=== PATIENT | female | born 1990 | race Caucasian/White ===

== ENCOUNTER 2020-09-15 14:25 | Emergency (ER) | payer OTHER, SELFPAY ==
--- NOTE | ~2020-09-15 | CT_ITS ---
EXAMINATION: CT abdomen pelvis w con DATE: 09/15/2020 15:44 INDICATION: Right lower quadrant abdominal pain. TECHNIQUE: Computed tomography (CT) of the abdomen and pelvis was performed with 100 mL Omnipaque 350 intravenous contrast. Automated exposure control and iterative reconstruction technique were employe d. The dose-length product was 1348.48 mGy-cm. COMPARISON: CT abdomen and pelvis 07/08/2019 FINDINGS: The visualized portions of the lung bases are clear without pneumonia or pleural effusion. The heart size is normal. No pericardial effusion. The liver, spleen, pancreas, adrenal glands, and r ight kidney are normal. There is a 4 mm stone in left kidney. There are no dilated loops of bowel. Th e appendix is normal. There are no pathologically enlarged lymph nodes. There is no free intraperiton eal fluid. There is mild thoracolumbar spondylosis. IMPRESSION: 1. 4 mm nonobstructing left kidney stone. Reviewed, dictated and finalized at location A.
--- NOTE | 2020-09-15 14:48 | ED.ABDPAIN ---
HPI - Abdominal Pain General Chief Complaint: Abdominal Pain Stated Complaint: abd/back pain Time Seen by Provider: 09/15/20 14:29 Source: patient Mode of arrival: ambulatory Limitations: no limitations History of Present Illness HPI narrative: 30 years old white female presents with right lower quadrant pain that started last night. Squeezing, on fire, get better with heating pad, Patient had similar history of recurrent right lower quadrant pain for the last 2 years. Today is not different than before. Patient had history of uterine ablation and some uterine disorder requires possible complete hysterectomy. Last menstrual period 1 month ago. History of section x2, uterine ablation, bilateral tubal ligation. Patient denies any fever, chills, nausea, vomiting, diarrhea, constipation, urinary symptoms, vaginal bleeding or discharge, COVID-19 exposure. Related Data Home Medications Medication Instructions Recorded Confirmed No Home Medications 09/15/20 09/15/20 Allergies Allergy/AdvReac Type Severity Reaction Status Date / Time No Known Allergies Allergy Verified 09/15/20 15:00 Review of Systems Review of Systems: Narrative: CONSTITUTIONAL: Denies fever, chills, or sweats. EYES: Denies visual changes, redness, or discharge. ENT: Denies rhinorrhea, congestion, sore throat, or otalgia. CARDIOVASCULAR: Denies chest pain, palpitations, or edema. RESPIRATORY: Denies cough or dyspnea. GASTROINTESTINAL: Denies abdominal pain, nausea, vomiting, or diarrhea. GENITOURINARY: Denies dysuria or hematuria. SKIN: Denies rash or itching. MUSCULOSKELETAL: Denies back pain, joint pain, or myalgia. NEUROLOGIC: Denies headache, numbness, or weakness. PSYCHIATRIC: Denies anxiety or depression. PMFSH Past Medical History Medical History Abdominal pain Obesity Social History Social History Social History: Patient denies smoking, drinking or using drugs. Second hand tobacco smoke exposure: No Exam Narrative: Exam Narrative: General appearance: Well-developed, well-nourished Skin: Normal color Head: Normocephalic, nontraumatic Eyes: Clear conjunctiva ENT: Oropharynx normal, ears normal, nose normal Neck: Supple, nontender Chest and respiratory: Airway patent, no respiratory distress, no accessory muscle use Heart: Regular rate/rhythm Abdomen: Soft, moderate tenderness right lower quadrant, slight guarding, no rebound, no organomegaly, quiet bowel sounds Vascular: Normal peripheral pulses, normal capillary refill. Musculoskeletal: Normal range of motion, nontender back Neurologic: Alert and oriented ?3, ASSOCIATE DOCTOR is normal as tested, no gross motor deficit Course Course Emergency Course: Improving/stable Vital Signs Vital signs: Vital Signs Temperature 36.7 C 09/15/20 14:55 Pulse Rate 97 09/15/20 14:55 Respiratory Rate 20 09/15/20 14:55 Blood Pressure 117/55 L 09/15/20 14:55 Pulse Oximetry 100 09/15/20 14:55 Temperature 36.7 C 09/15/20 14:55 Pulse Rate 97 09/15/20 14:55 Respiratory Rate 20 09/15/20 14:55 Blood Pressure 117/55 L 09/15/20 14:55 Pulse Oximetry 100 09/15/20 14:55 MDM - Abdominal Pain MDM Narrative Medical decision making narrative: Patient presents with recurrent right lower quadrant pain high likely secondary to uterine disorder. Patient does not know what it is. Labs, CT abdomen pelvis with IV contrast ordered. IV fluids started. Blood work-up showed no significant abnormality, CT scan of the abdomen and pelvis showed no significant abnormality. Patient probably need to follow-up wit
[2020-09-15 14:53] LABS: Add Urine Microscopic? YES; Appearance Urine Cloudy (Clear); Bacteria Urine Trace /hpf; Bilirubin Urine Negative (Negative); Blood Urine Negative (Negative); Color Urine Yellow (Yellow); Glucose Urine UA Negative (Negative); Ketones Urine Negative (Negative); Leukocyte Esterase Ur Negative LEU/UL (Negative); Mucus Urine Rare /lpf; Nitrate Urine Negative (Negative); Protein Urine Negative (Negative); RBC Urine 0-2 /hpf (0-2); Specific Grav Ur 1.018 (1.001-1.035); Squamous Epithelial Cell Urine Many /hpf (Few); Urobilinogen Urine Negative mg/dL (<2.0); WBC Urine 0-3 /hpf
[2020-09-15 14:55] VITALS: BP 117/55; PULSE 97; RESP 20; TEMP 36.7; O2SAT 100
[2020-09-15] MEDS: SODIUM CHLORIDE 0.9% IV 1,000 ML 999 ML IV CONT (15:01)
[2020-09-15 15:09] LABS: Basophils Percent Auto 0.4 % (0.2-1.2); Eosinophils Absolute Auto 0.1 K/mm3 (0-0.3); Eosinophils Percent Auto 0.8 % (0-4.4); Hematocrit 38.6 % (37.0-47.0); Hemoglobin 12.2 g/dL (12.0-15.0); Immature Granulocyte Absolute 0.02 K/mm3 (0.00-0.031); Immature Granulocyte Percent A 0.2 % (0-0.5); Lymphocytes Absolute Auto 2.68 K/mm3 (0.9-3.2); Lymphocytes Percent Auto 31.9 % (18.3-44.2); Mean Corpuscular HGB Conc 31.6 g/dl (32-36); Mean Corpuscular Hemoglobin 24.7 pg (26-34); Mean Corpuscular Volume 78.3 fl (80-100); Mean Platelet Volume 9.7 fl (7.4-10.4); Monocytes Absolute Auto 0.4 K/mm3 (0.1-0.6); Monocytes Percent Auto 4.6 % (2.6-8.5); Neutrophils Absolute Auto 5.2 K/mm3 (1.3-6.7); Neutrophils Percent Auto 62.1 % (45.5-73.1); Platelet Count Result 265 k/mm3 (150-375); Red Blood Count 4.93 M/mm3 (4.2-5.4); Red Cell Distribution Width 14.2 % (11.5-14.5); White Blood Count 8.4 K/mm3 (4.5-10.0)
[2020-09-15 15:20] LABS: Alanine Aminotransferase 19 U/L (4-35); Albumin Level 4.3 g/dL (3.5-5.1); Alkaline Phosphatase 118 U/L (38-126); Anion Gap 10 mmol/L (8-16); Aspartate Amino Transferase 25 U/L (14-36); Bilirubin,Total 0.4 mg/dL (0.2-1.3); Blood Urea Nitrogen 7 mg/dL (7-17); Calcium 9.2 mg/dL (8.4-10.2); Carbon Dioxide 24 mmol/L (22-30); Chloride 103 mmol/L (98-107); Estimated CRCL calculation 141 ml/min; Estimated Glomerular Filt Rate > 60; Glucose 91 mg/dL (65-105); Lipase 34 U/L (23-300); Potassium 3.8 mmol/L (3.4-5.0); Sodium 137 mmol/L (137-145)
[2020-09-15 17:14] VITALS: BP 130/80; PULSE 88; RESP 18; TEMP 36.6; O2SAT 99
== END 2020-09-15 17:15 | disposition home or self-care (01) ==
PROVIDERS: Emergency Provider Emergency Medicine; PCP Obstetrics & Gynecology
DX: R10.31 Right lower quadrant pain (principal); N20.0 Calculus of kidney
CPT/HCPCS: 36415; 74177; 80053; 81001; 81025; 83690; 85025; 96360; 99284; J7030; Q9967

== ENCOUNTER 2021-11-12 15:03 | Emergency (ER) | payer OTHER, SELFPAY ==
--- NOTE | ~2021-11-12 | CT_ITS ---
EXAMINATION: CT abdomen pelvis wo con DATE: 11/12/2021 16:38 INDICATION: Right flank pain. TECHNIQUE: Computed tomography (CT) of the abdomen and pelvis was performed without intravenous contr ast. Automated exposure control and iterative reconstruction technique were employed. The dose-length product was 757.65 mGy-cm. COMPARISON: 09/15/2020 FINDINGS: Lung bases are clear. Heart size is normal. No pericardial or pleural effusion. Liver, gallbladder, s pleen, pancreas and bilateral adrenal glands are normal. Bilateral nephrolithiasis with 3 1-2 mm ston es in the right kidney and 3 stones measuring between 1 mm and 3 mm in the left kidney. Unchanged sma ll phlebolith slightly posterior to the distal most left ureter. No ureteral stones or hydronephrosis . Bowels including the appendix are normal. Decompressed bladder, anteverted uterus and bilateral ad nexa are unremarkable. No free intraperitoneal gas or fluid. No pathologically enlarged abdominal or pelvic lymphadenopathy. Mild lumbar levocurvature with mild thoracic and minimal lumbar spondylosis. IMPRESSION: 1. Bilateral nonobstructing nephrolithiasis. No acute intra-abdominal/pelvic process. Reviewed, dictated and finalized at location H. ORATING MACHINE OPERATOR IMPRESSION: 1. Bilateral nonobstructing nephrolithiasis. No acute intra-abdominal/pelvic pr ocess.
[2021-11-12 15:05] VITALS: BP 151/99; PULSE 102; RESP 16; TEMP 36.8; O2SAT 100
--- NOTE | 2021-11-12 16:13 | ED.ABDPAIN ---
HPI - Abdominal Pain General Chief Complaint: Abdominal Pain Stated Complaint: back and abd pain Time Seen by Provider: 11/12/21 16:06 Source: patient and RN notes reviewed History of Present Illness HPI narrative: Patient presents to the ED with right flank pain radiating to the mid axillary line of the abdomen started 2 days ago, like a deep ache pain. Patient denies aggravating or relieving factors. Patient denies having similar symptoms. Patient drove herself to the emergency room. Patient is not vaccinated for COVID-19. Patient denies any fever, chills, nausea, vomiting, diarrhea, constipation, urinary symptoms. History of section x2, bilateral tubal ligation, and GERD. Patient does not smoke or drink or uses drugs. Related Data Home Medications Medication Instructions Recorded Confirmed No Home Medications 09/15/20 09/15/20 Allergies Allergy/AdvReac Type Severity Reaction Status Date / Time No Known Allergies Allergy Verified 11/12/21 15:07 Review of Systems Review of Systems: CONSTITUTIONAL: Denies fever, chills, or sweats. EYES: Denies visual changes, redness, or discharge. ENT: Denies rhinorrhea, congestion, sore throat, or otalgia. CARDIOVASCULAR: Denies chest pain, palpitations, or edema. RESPIRATORY: Denies cough or dyspnea. GASTROINTESTINAL: Denies abdominal pain, nausea, vomiting, or diarrhea. GENITOURINARY: Denies dysuria or hematuria. SKIN: Denies rash or itching. MUSCULOSKELETAL: Denies back pain, joint pain, or myalgia. NEUROLOGIC: Denies headache, numbness, or weakness. PSYCHIATRIC: Denies anxiety or depression. PMFSH Past Medical History Medical History Abdominal pain Obesity Social History Social History Social History: Patient denies smoking, drinking or using drugs. Second hand tobacco smoke exposure: No Exam Narrative: General appearance: Well-developed, well-nourished Skin: Normal color Head: Normocephalic, nontraumatic Eyes: Clear conjunctiva ENT: Oropharynx normal, ears normal, nose normal Neck: Supple, nontender Chest and respiratory: Airway patent, no respiratory distress, no accessory muscle use Heart: Regular rate/rhythm Abdomen: Soft, slight tenderness right flank area, no organomegaly, quiet bowel sounds Vascular: Normal peripheral pulses, normal capillary refill. Musculoskeletal: Normal range of motion, nontender back Neurologic: Alert and oriented ?3, PROCESS MECHANIC is normal as tested, no gross motor deficit Course Course Emergency Course: Stable, improving Vital Signs Vital signs: Vital Signs Temperature 36.8 C 11/12/21 15:05 Pulse Rate 102 H 11/12/21 15:05 Respiratory Rate 16 11/12/21 15:05 Blood Pressure 151/99 H 11/12/21 15:05 Pulse Oximetry 100 11/12/21 15:05 Temperature 36.8 C 11/12/21 15:05 Pulse Rate 102 H 11/12/21 15:05 Respiratory Rate 16 11/12/21 15:05 Blood Pressure 151/99 H 11/12/21 15:05 Pulse Oximetry 100 11/12/21 15:05 MDM - Abdominal Pain MDM Narrative Medical decision making narrative: Kidney stone, pyelonephritis is my concern. Labs, CT abdomen pelvis without contrast, IV fluid ordered Differential Diagnosis Differential diagnosis: Likely abdominal pain, acute appendicitis, calculus of kidney, constipation, diverticulitis, pancreatitis and other (Kidney stone) Critical Care Time Critical Care Time Critical Care Time: Yes Total Critical Care Time: 35 Discharge Plan Discharge Prescriptions: No Action No Home Medications RF: 0
[2021-11-12 16:21] LABS: Basophils Percent Auto 0.4 % (0.2-1.2); Eosinophils Absolute Auto 0.1 K/mm3 (0-0.3); Hematocrit 37.4 % (37.0-47.0); Hemoglobin 11.8 g/dL (12.0-15.0); Immature Granulocyte Absolute 0.03 K/mm3 (0.00-0.031); Immature Granulocyte Percent A 0.3 % (0-0.5); Lymphocytes Absolute Auto 2.74 K/mm3 (0.9-3.2); Lymphocytes Percent Auto 27.8 % (18.3-44.2); Mean Corpuscular HGB Conc 31.6 g/dl (32-36); Mean Corpuscular Hemoglobin 25.4 pg (26-34); Mean Corpuscular Volume 80.4 fl (80-100); Monocytes Absolute Auto 0.5 K/mm3 (0.1-0.6); Monocytes Percent Auto 5.5 % (2.6-8.5); Neutrophils Absolute Auto 6.4 K/mm3 (1.3-6.7); Platelet Count Result 267 k/mm3 (150-375); Red Blood Count 4.65 M/mm3 (4.2-5.4); Red Cell Distribution Width 14.1 % (11.5-14.5); White Blood Count 9.9 K/mm3 (4.5-10.0)
[2021-11-12] MEDS: ONDANSETRON INJ 4 MG/2 ML VIAL IV PUSH (16:27)
[2021-11-12] MEDS: MORPHINE SULFATE (*CRX) 4 MG/ML INJ IV PUSH (16:27)
[2021-11-12 16:28] LABS: Add Urine Microscopic? YES; Appearance Urine Clear (Clear); Bilirubin Urine Negative (Negative); Blood Urine Negative (Negative); Color Urine Amber (Yellow); Glucose Urine UA Negative (Negative); Ketones Urine Negative (Negative); Leukocyte Esterase Ur Negative LEU/UL (Negative); Mucus Urine Heavy /lpf; Nitrate Urine Positive (Negative); Protein Urine 1+ mg/dL (Negative); Specific Grav Ur 1.028 (1.001-1.035); Squamous Epithelial Cell Urine Many /hpf (Few); WBC Urine 0-3 /hpf
[2021-11-12] MEDS: SODIUM CHLORIDE 0.9% IV 1,000 ML 999 ML IV CONT (16:28)
[2021-11-12 16:52] LABS: Alanine Aminotransferase 25 U/L (4-35); Albumin Level 4.2 g/dL (3.5-5.1); Alkaline Phosphatase 100 U/L (38-126); Anion Gap 7 mmol/L (8-16); Aspartate Amino Transferase 27 U/L (14-36); Bilirubin,Total 0.3 mg/dL (0.2-1.3); Blood Urea Nitrogen 9 mg/dL (7-17); Calcium 9.1 mg/dL (8.4-10.2); Carbon Dioxide 27 mmol/L (22-30); Chloride 102 mmol/L (98-107); Estimated CRCL calculation 91 ml/min; Estimated Glomerular Filt Rate > 60; Glucose 107 mg/dL (65-110); Lipase 46 U/L (23-300); Potassium 3.8 mmol/L (3.4-5.0); Sodium 136 mmol/L (137-145)
[2021-11-12] MEDS: CIPROFLOXACIN 500 MG TAB PO (18:47)
== END 2021-11-12 19:05 | disposition home or self-care (01) ==
PROVIDERS: Emergency Provider Emergency Medicine; PCP Nurse Practitioner Family
DX: N39.0 Urinary tract infection, site not specified (principal); E66.9 Obesity, unspecified; Z68.41 Body mass index [BMI] 40.0-44.9, adult
CPT/HCPCS: 36415; 74176; 80053; 81001; 81025; 83690; 85025; 96361; 96374; 96375; 99284; A9270; J2270; J2405; J7030

== ENCOUNTER 2024-08-05 11:12 | Emergency (ER) | payer OTHER, SELFPAY ==
--- NOTE | ~2024-08-05 | CT_ITS ---
EXAMINATION: CT abdomen pelvis wo con DATE: 08/05/2024 13:05 INDICATION: Right flank pain TECHNIQUE: Computed tomography (CT) of the abdomen and pelvis was performed without intravenous contr ast. Automated exposure control and iterative reconstruction technique were employed. The dose-length product was 623.05 mGy-cm. COMPARISON: 11/12/2021 FINDINGS: Lung bases are clear. Heart size normal. No pericardial or pleural effusion. Status post sleeve gastr ectomy with suture line along the greater curvature of the stomach. Liver, gallbladder, spleen, pancr eas and bilateral adrenal glands are normal. Kidneys and ureters are normal with no urolithiasis, hyd roureteronephrosis or perinephric/ureteral stranding. Bowels including the appendix are normal. Appr oximately 1 cm low-attenuation lesion along the anterior lower uterine segment which could represent a small uterine fibroid or subendometrial cyst, the latter suggested by Armando small anechoic lesion in this region on ultrasound dated 09/04/2022. Partially decompressed bladder and bilateral adnexa ar e unremarkable. No free intraperitoneal gas or fluid. No pathologically enlarged abdominal or pelvic lymphadenopathy. Mild to moderate thoracic spondylosis with chronic appearing mild likely physiologic anterior wedging at T11-L1. IMPRESSION: 1. No urolithiasis or acute intra-abdominal/pelvic process. Reviewed, dictated and finalized at location B.
[2024-08-05 11:24] VITALS: BP 124/82; PULSE 85; RESP 16; O2SAT 100
[2024-08-05 12:38] LABS: BEDSIDEPREGUCG Negative (Negative)
[2024-08-05 12:51] LABS: Add Urine Microscopic? YES; Appearance Urine Clear (Clear); Bacteria Urine Rare /hpf; Bilirubin Urine Negative (Negative); Blood Urine Negative (Negative); Color Urine Dark Yellow (Yellow); Glucose Urine UA Negative (Negative); Ketones Urine Trace mg/dL (Negative); Leukocyte Esterase Ur Negative LEU/UL (Negative); Nitrate Urine Positive (Negative); Non Pathogenic Casts 0-2; Protein Urine Trace mg/dL (Negative); Specific Grav Ur 1.025 (1.001-1.035); Squamous Epithelial Cell Urine Occasional /hpf (Few); WBC Urine 0-5 /hpf (0-3); pH Urine 7.5 (5.0-9.0)
--- NOTE | 2024-08-05 12:51 | ED.BACK ---
HPI - Back Pain/Injury General Chief Complaint: Back Pain/Injury Stated Complaint: abd pain Time Seen by Provider: 08/05/24 12:16 History of Present Illness HPI Narrative: 34-year-old female presenting to the emergency department for evaluation for right flank pain. Patient reports over the last 2 weeks she has had intermittent burning of her right flank that radiates around to her abdomen. Patient does report prior history of kidney stones but states this feels different. Patient denies has any burning with urination denies any hematuria. Related Data Allergies Allergy/AdvReac Type Severity Reaction Status Date / Time NSAIDS (Non-Steroidal Allergy Other Verified 08/05/24 11:29 Anti-Inflamma Review of Systems Review of Systems: All systems reviewed & are unremarkable except as noted in HPI and below PMFSH Past Medical History Medical History Abdominal pain Obesity Surgical History Surgical History Delivery by section History of endometrial ablation History of tubal ligation Social History Social History (Updated 08/30/22 @ 10:38 by Yumiko Bai MA) Social History: Patient denies smoking, drinking or using drugs. Smoking status: Never smoker Second hand tobacco smoke exposure: No Alcohol intake: never Substance use: never Substance use type: does not use Living arrangements: with family Occupation/Education: unemployed Gender identity (if verbalized by the patient): Female Sexual Orientation (if Verbalized by the Patient): Straight or Heterosexual Exam Narrative: APPEARANCE: Well appearing, no pain, no distress, well-nourished. HEAD: normocephalic, atraumatic. EYES: PERRLA/EOMI, conjunctivae clear. NOSE: Normal no drainage EARS:TMS clear with good light reflex. THROAT: Pharynx clear, no exudate. NECK: Supple. No adenopathy, no masses. RESPIRATORY: Airway patent, respirations nonlabored. Clear to auscultation bilaterally, no rales, rhonchi, wheezing. CARDIOVASCULAR: Regular rate and rhythm without murmurs rubs or gallops. ABDOMINAL: No CVA tenderness to palpation MUSCULOSKELETAL: Moves all extremities. Strength/ROM intact, No edema, No calf tenderness. NEURO: Alert. Cranial nerves II through XII intact. Good gait. Good coordination SKIN: Warm, dry. Normal Color Course Vital Signs Vital signs: Vital Signs Pulse Rate 85 08/05/24 11:24 Respiratory Rate 16 08/05/24 11:24 Blood Pressure 124/82 08/05/24 11:24 Pulse Oximetry 100 08/05/24 11:24 Oxygen Delivery Room Air 08/05/24 11:24 Temperature 97.8 F 08/05/24 13:57 Pulse Rate 72 08/05/24 13:57 Respiratory Rate 15 08/05/24 13:57 Blood Pressure 125/80 08/05/24 13:57 Pulse Oximetry 100 08/05/24 13:57 Oxygen Delivery Room Air 08/05/24 11:24 MDM - Back Pain/Injury MDM Narrative Medical decision making narrative: 34-year-old female presents emergency department for evaluation for right flank pain. Patient did have some hematuria with CT scan was negative for ureteral calculi. Patient was advised to follow-up with Urology for hematuria. Differential Diagnosis Differential diagnosis: Likely lumbar radiculopathy, strain of lumbar region, renal colic, pyelonephritis and other Lab Data Attestation: I reviewed the patient's lab results. Labs: Lab Results 08/05/24 08/05/24 Range/Units 12:32 12:36 Urine Color Dark yellow (Yellow) Urine Appearance Clear (Clear) Urine pH 7.5 (5.0-9.0) Ur Specific [place] 1.025 (1.001-1.035) Urine Protein Trace (Negative) mg/dL Urine Glucose (UA) Negative (Negative) mg/dL Urine Ketones Trace H (Negative) mg/dL Ur Blood (Man) Negative (Negative) Urine Nitrate Positive H (Negative) Urine Bilirubin Negative (Negative) Urine Urobilinogen 1.0 (<2.0) mg/dL Leukocyte Esterase Rfl Negative (
[2024-08-05 13:57] VITALS: BP 125/80; PULSE 72; RESP 15; TEMP 36.6; O2SAT 100
== END 2024-08-05 13:58 | disposition home or self-care (01) ==
PROVIDERS: Emergency Provider Emergency Medicine; PCP Nurse Practitioner Family
DX: R10.9 Unspecified abdominal pain (principal); R31.9 Hematuria, unspecified; E66.9 Obesity, unspecified; Z68.33 Body mass index [BMI] 33.0-33.9, adult; Z79.899 Other long term (current) drug therapy
CPT/HCPCS: 74176; 81001; 81025; 87086; 99284

== ENCOUNTER 2024-09-29 21:07 | Emergency (ER) | payer OTHER, SELFPAY ==
--- NOTE | ~2024-09-29 | US_ITS ---
EXAM: PELVIC ULTRASOUND. Transabdominal only (patient refused transvaginal examination) HISTORY: irregular vaginal bleeding, suprapubic pain . 2 para 2 COMPARISON: 09/04/2022, performed at an outside institution. Reference is also made to the CT examination of the abdomen and pelvis dated 08/05/2024 FINDINGS: UTERUS: 7.3 x 4.1 x 5.1 cm. The uterus is anteverted and anteflexed. The endometrial complex measures 2.1 mm. A small focus of decreased attenuation is identified within the cervix measuring 8 mm in greatest dim ension, unchanged from 2021 examination. RIGHT OVARY: The right ovary is unremarkable in echogenicity and size measuring 2.8 x 1.6 x 1.4 cm. Arterial and venous flow are identified. LEFT OVARY: The left ovary is unremarkable in echogenicity and size measuring 2.3 x 1.4 x 1.7 cm Both arterial and venous flow are identified. No free fluid is identified within the pelvis. IMPRESSION: Stable cyst within the uterus. Otherwise, unremarkable transabdominal sonographic evaluation of the pelvis, as detailed above. Reviewed, dictated and finalized at location A. LY PROGRAM SPECIALIST
[2024-09-29 21:09] VITALS: BP 149/92; PULSE 87; RESP 15; TEMP 36.9; O2SAT 100
[2024-09-29 21:21] LABS: BEDSIDEPREGUCG Negative (Negative)
[2024-09-29 21:37] LABS: Add Urine Microscopic? YES; Appearance Urine Clear (Clear); Bacteria Urine None Seen /hpf; Bilirubin Urine Negative (Negative); Blood Urine 3+ (Negative); Color Urine Yellow (Yellow); Glucose Urine UA Negative (Negative); Ketones Urine Negative (Negative); Leukocyte Esterase Ur Trace LEU/UL (Negative); Need Manual Microscopic Reviewed; Nitrate Urine Negative (Negative); Non Pathogenic Casts 0-2; Protein Urine Negative (Negative); RBC Urine 21-50 /hpf (0-2); Specific Grav Ur 1.024 (1.001-1.035); Squamous Epithelial Cell Urine None Seen /hpf (Few)
[2024-09-29] MEDS: ACETAMINOPHEN 500 MG TABLET 1000 MG PO (21:46)
[2024-09-29 21:58] LABS: Basophils Percent Auto 0.5 % (0.2-1.2); Eosinophils Absolute Auto 0.2 K/mm3 (0-0.3); Eosinophils Percent Auto 2.3 % (0-4.4); Hematocrit 38.6 % (37.0-47.0); Hemoglobin 12.8 g/dL (12.0-15.0); Immature Granulocyte Absolute 0.03 K/mm3 (0.00-0.031); Immature Granulocyte Percent A 0.4 % (0-0.5); Lymphocytes Absolute Auto 3.36 K/mm3 (0.9-3.2); Lymphocytes Percent Auto 40.2 % (18.3-44.2); Mean Corpuscular HGB Conc 33.2 g/dl (32-36); Mean Corpuscular Hemoglobin 28.5 pg (26-34); Mean Platelet Volume 9.4 fl (7.4-10.4); Monocytes Absolute Auto 0.4 K/mm3 (0.1-0.6); Monocytes Percent Auto 5.3 % (2.6-8.5); Neutrophils Absolute Auto 4.3 K/mm3 (1.3-6.7); Neutrophils Percent Auto 51.3 % (45.5-73.1); Platelet Count Result 228 k/mm3 (150-375); Red Blood Count 4.49 M/mm3 (4.2-5.4); Red Cell Distribution Width 12.8 % (11.5-14.5); White Blood Count 8.4 K/mm3 (4.5-10.0)
[2024-09-29 22:09] LABS: Alanine Aminotransferase 16 U/L (6-35); Albumin Level 4.2 g/dL (3.5-5.1); Alkaline Phosphatase 101 U/L (38-126); Anion Gap 7 mmol/L (4-12); Aspartate Amino Transferase 23 U/L (14-36); Bilirubin,Total 0.4 mg/dL (0.2-1.3); Blood Urea Nitrogen 9 mg/dL (7-17); Carbon Dioxide 26 mmol/L (22-30); Chloride 105 mmol/L (98-107); Estimated CRCL calculation 106 ml/min; Estimated Glomerular Filt Rate > 60; Glucose 97 mg/dL (65-110); Potassium 4.2 mmol/L (3.4-5.0); Sodium 138 mmol/L (137-145)
--- NOTE | 2024-09-29 22:49 | ED.FEMALEGU ---
HPI - Female Genitourinary General Chief complaint: Urogenital-Female Stated complaint: when i wiped something weird came out Time Seen by Provider: 09/29/24 21:28 History of Present Illness HPI Narrative: 34-year-old female presents to the emergency department for more abdominal cramping and after passing abnormal tissue from her vagina 2 hours prior to arrival. Patient states she went to the bathroom and wiped and had a large brown chunk of tissue on her toilet paper with surrounding blood which concerned her and prompted her to come to the ED. She has not had to change her pad or tampon since the bleeding began 2 hours ago. States the bleeding is very light. States she has been having lower abdominal cramping and cramping in her low back. She notes that she went to her OBGYN approximately 1 week ago and had a full panel STD testing that was all negative. She states she did test positive for BV at that time is not taking Flagyl. She denies vaginal discharge, dysuria or hematuria, vaginal itchiness, dyspareunia. LMP 09/06/2024. States she does have irregular periods since she had a uterine ablation approximately 6 years ago. Also reports a remote history of tubal ligation. Denies fever, nausea or vomiting. Patient cannot take NSAIDs due to prior gastric bypass surgery. Related Data Home Medications Medication Instructions Recorded Confirmed multivitamin 1 tablet PO DAILY 09/18/24 09/18/24 omeprazole 40 mg capsule,delayed mg PO 09/18/24 09/18/24 release Allergies Allergy/AdvReac Type Severity Reaction Status Date / Time NSAIDS (Non-Steroidal Allergy Other Verified 09/18/24 10:29 Anti-Inflamma Review of Systems Review of Systems: All systems reviewed & are unremarkable except as noted in HPI and below [facility] Past Medical History Medical History Abdominal pain HSV-2 (herpes simplex virus 2) infection Obesity Surgical History Surgical History Delivery by section H/O gastric sleeve December 19, 2023 History of endometrial ablation History of tubal ligation Social History Social History Social History: Patient denies smoking, drinking or using drugs. Smoking status: Current every day smoker Tobacco type: e-cigarettes/vaping Second hand tobacco smoke exposure: No Alcohol intake: current Alcohol use details: occasionally Substance use: never Substance use type: does not use Do You Feel Safe in your Home?: Yes Lack of Transportation: No Lack of Food: Never True Current Housing: I Have Housing Concerned About Future Housing: No Difficulty Paying Gas/Electric Bills: No Difficulty Paying for Meds: No Currently Unemployed: No Education: High School Diploma/GED Difficulty w/ Childcare or Family Care: No Living arrangements: with family Occupation/Education: unemployed Gender identity (if verbalized by the patient): Female Sexual Orientation (if Verbalized by the Patient): Straight or Heterosexual Exam Narrative: GENERAL: Well-appearing, well-nourished, and in no acute distress. HEAD: Normocephalic, atraumatic. EYES: PERRLA and EOMI. ENT: Nares clear, no rhinorrhea or epistaxis. Mucous membranes moist. NECK: Supple. CHEST: Clear to auscultation. No respiratory distress. HEART: Regular rate and rhythm. No murmur heard. Normal peripheral pulses. ABDOMEN: Soft, nontender, nondistended, normal active bowel sounds. No rebound, guarding or rigidity. No CVA tenderness. PELVIC: deferred EXTREMITIES: Normal range of motion. No edema. SKIN: Warm, dry, no rash. NEURO: No focal deficits. Alert and oriented x3 Course Vital Signs Vital signs: Vital Signs Temperature 98.5 F 09/29/24 21:09 Pulse Rate 87 09/29/24 21:09 Respiratory Rate 15 09/29/24 21:09 Blood Pressure 149/92 H 09/29/24 21:09 Pulse Oximetry 100 09/29/24 21:09 Oxygen Delivery Room Air 09/29/24 21:09 Temperature 98 F 09/29/24 23:23 Pulse Rate 71 09/29/24 23:23 Respiratory Rate 17 09/29/24 23:23 Blood Pressure 131/82 09/29/24 23:23 Pulse Oximetry 100 09/29/24 23:23 Oxygen Delivery Room Air 09/29/24 21:09 MDM - Female Genitourinary MDM Narrative Medical decision making narrative: 34-year-old female presents emergency department after passing abnormal tissue from her vaginal vault 2 hours prior to arrival and now having lower abdominal cramping and low back cramping. LMP 09/06/2024. Triage vitals are stable. She is afebrile nontoxic appearing. Abdomen is soft and nontender. Offered to perform a pelvic exam, however patient politely declined. She recently had a negative panel of STD testing 1 week ago by her OBGYN. She did test positive for BV for which she is on Flagyl. CBC without leukocytosis. Given she is afebrile and no white count, PID less likely. Chemistries are unremarkable. test is negative. UA does show 21-50 rbc's and 6-10 wbc's the trace leuk esterase. No nitrates. Denies symptoms of UTI, will wait for urine culture results prior to treatment. Pending pelvic ultrasound to rule out ovarian torsion, patient is requesting to leave against medical advice. States she made appointment with her OBGYN in the morning. I advised her to continue taking the Flagyl and to take Tylenol ibuprofen as needed for pain. Discussed her symptoms are likely secondary to her menstrual cycle, however discussed that I cannot rule out ovarian torsion, PID, tubo-ovarian abscess and other. Strict ED return precautions discussed. She is agreeable to plan verbalized understanding. Discharged in stable condition. Lab Data 09/29/24 21:52 09/29/24 21:52 Labs: Lab Results 09/29/24 09/29/24 09/29/24 Range/Units 21:19 21:21 21:52 WBC 8.4 (4.5-10.0) K/mm3 RBC 4.49 (4.2-5.4) M/mm3 Hgb 12.8 (12.0-15.0) g/dL Hct 38.6 (37.0-47.0) % MCV 86.0 (80-100) fl MCH 28.5 (26-34) pg MCHC 33.2 (32-36) g/dl RDW 12.8 (11.5-14.5) % Plt Count 228 (150-375) k/mm3 MPV 9.4 (7.4-10.4) fl Immature Gran % (Auto) 0.4 (0-0.5) % Neut % (Auto) 51.3 (45.5-73.1) % Lymph % (Auto) 40.2 (18.3-44.2) % [place] % (Auto) 5.3 (2.6-8.5) % Eos % (Auto) 2.3 (0-4.4) % Baso % (Auto) 0.5 (0.2-1.2) % Lymph # (Auto) 3.36 H (0.9-3.2) K/mm3 Shannon # (Auto) 0.4 (0.1-0.6) K/mm3 Eos # (Auto) 0.2 (0-0.3) K/mm3 Baso # (Auto) 0.0 (0.0-0.1) K/mm3 Abs Immat Gran (auto) 0.03 (0.00-0.031) K/mm3 Absolute Neuts (auto) 4.3 (1.3-6.7) K/mm3 Absolute Nucleated RBC 0.000 (0.0-0.012) K/mm3 Nucleated RBC % 0.0 (0.0-0.2) % Sodium 138 (137-145) mmol/L Potassium 4.2 (3.4-5.0) mmol/L Chloride 105 (98-107) mmol/L Carbon Dioxide 26 (22-30) mmol/L Anion Gap 7 (4-12) mmol/L BUN 9 (7-17) mg/dL Creatinine 0.60 L (0.7-1.0) mg/dL Estim Creat Clear Calc 106 ml/min Estimated GFR > 60 (59 - ) Glucose 97 (65-110) mg/dL Calcium 9.0 (8.4-10.2) mg/dL Total Bilirubin 0.4 (0.2-1.3) mg/dL AST 23 (14-36) U/L ALT 16 (6-35) U/L Alkaline Phosphatase 101 (38-126) U/L Total Protein 8.0 (6.3-8.2) g/dL Albumin 4.2 (3.5-5.1) g/dL Urine Color Yellow (Yellow) Urine Appearance Clear (Clear) Urine pH 7.0 (5.0-9.0) Ur Specific [place] 1.024 (1.001-1.035) Urine Protein Negative (Negative) mg/dL Urine Glucose (UA) Negative (Negative) mg/dL Urine Ketones Negative (Negative) mg/dL Ur Blood (Man) 3+ H (Negative) Urine Nitrate Negative (Negative) Urine Bilirubin Negative (Negative) Urine Urobilinogen 1.0 (<2.0) mg/dL Add Ur Microanalysis Reviewed Leukocyte Esterase Rfl Trace H (Negative) AMANDA/UL Urine RBC 21-50 H (0-2) /hpf Urine WBC 6-10 H (0-3) /hpf Ur Squamous Epith Cells None seen (Few) /hpf Urine Bacteria None seen /hpf Urine Casts 0-2 POC Urine HCG, Qual Negative (Negative) Discharge Plan Discharge Clinical Impression: Abdominal pain, suprapubic Patient Disposition: Left Against Medical Advice Condition: Stable Instructions: Abdominal Pain (ED) Additional Instructions: Your evaluated in the emergency department for suprapubic abdominal pain, vaginal bleeding and passing tissue. We were waiting for your ultrasound when he decided to leave against medical advice pending the formal read. Please follow-up closely with your OBGYN. Return to the emergency department if he develops significantly worsening pain, your bleeding through 1 pad per hour, fever, or other concerning symptoms. Prescriptions: No Action multivitamin Tablet 1 tablet PO DAILY omeprazole 40 mg capsule,delayed release(DR/EC) PO metronidazole 0.75 % (37.5mg/5 gram) gel 1 appful vaginal QHS 5 Days Qty: 70 0RF Rx Instructions: insert vaginally for five nights Follow-up/Referrals: PHYSICIAN,WRINKLE CHASER [Primary Care Provider] -
[2024-09-29 23:23] VITALS: BP 131/82; PULSE 71; RESP 17; TEMP 36.6; O2SAT 100
== END 2024-09-30 00:25 | disposition left against medical advice (07) ==
PROVIDERS: Student in an Organized Health Care Education/Training Program; Emergency Provider Physician Assistant
DX: R10.2 Pelvic and perineal pain (principal); E66.9 Obesity, unspecified; Z68.33 Body mass index [BMI] 33.0-33.9, adult; F17.290 Nicotine dependence, other tobacco product, uncomplicated; Z98.84 Bariatric surgery status
CPT/HCPCS: 36415; 76856; 80053; 81001; 81025; 85025; 87086; 99284; A9270

== ENCOUNTER 2025-05-25 13:34 | Emergency (ER) | payer OTHER, SELFPAY ==
--- NOTE | ~2025-05-25 | XR_ITS ---
EXAM/ PROCEDURE: XR wrist RT min 3V - 05/25/2025 14:45 CDT HISTORY: 34 years old Female with right wrist pain, injury COMPARISON: None available TECHNIQUE: Four view(s) FINDINGS/ IMPRESSION: There are no fractures or dislocations.Joint spaces are within normal limits. Reviewed, dictated and finalized at location A.
--- NOTE | ~2025-05-25 | XR_ITS ---
EXAM/ PROCEDURE: XR tibia fibula RT 2V - 05/25/2025 14:45 CDT HISTORY: 34 years old Female with right lower leg pain, injury COMPARISON: None available TECHNIQUE: Two view(s) FINDINGS/ IMPRESSION: There are no fractures or dislocations.Joint spaces are within normal limits. Reviewed, dictated and finalized at location A.
[2025-05-25 13:36] VITALS: BP 129/78; PULSE 97; RESP 16; TEMP 36.3; O2SAT 100
--- OUTSIDE RECORDS SUMMARY | 2025-05-25 13:37 | XMS_ITS | Clinical Summary ---
Author Organization [facility] Address [address], [facility] [address] [place] [address] Phone Care Team Providers Care Provider Relations Coordinator Name Role Phone Ila Bunch APRN, CNP Primary Care Prov ider Allergies No known active allergies Medications ergocalciferol (VITAMIN D) 12078 UNIT Capsule 3 Active iron polysaccharides (NIFEREX) 150 MG Capsule Take 1 Capsule by mouth 2 times daily. 60 Capsule 3 3 Active Active Problems No known active problems Social History Tobacco Use Types Packs/Day Years Used Date Smoking Tobacco: Never Smokeless Tobacco: Never Tobacco Cessation:Counseling Given: Not Answered Alcohol Use Standard Drinks/Week Comments Not Currently 0 (1 standard drink = 0.6 oz pur e alcohol) Comments Unknown Sex and Gender Information Value Date Recorded Sex Assigned at Not on file Legal Sex Female 2:40 PM CDT Gender Identity Not on file Sexual Orientation Not on file Last Filed Vital Signs Vital Sign Reading Time Taken Comments Blood Pressure 126/90 10/19/2023 12:55 PM PHARMACY LABORATORY TECHNICIAN Pulse 102 10/19/2023 12:55 PM PHARMACY LABORATORY TECHNICIAN Temperature 36.8 C (98.2 F) 10/19/2023 12:55 PM PHARMACY LABORATORY TECHNICIAN Respiratory Rate 18 10/19/2023 12:5 5 PM PHARMACY LABORATORY TECHNICIAN Oxygen Saturation 97% 10/19/2023 12: 55 PM PHARMACY LABORATORY TECHNICIAN Inhaled Oxygen Concentration - - Weight 108.6 kg (239 lb 6.4 oz) 023 12:55 PM PHARMACY LABORATORY TECHNICIAN Height 154.9 cm (5' 1) 10/19/2023 12:5 5 PM PHARMACY LABORATORY TECHNICIAN Body Mass Index 45.23 10/19/2023 12:55 PM PHARMACY LABORATORY TECHNICIAN Plan of Treatment Health Maintenance Due Date Last Done Comments Hepatitis C Virus (HCV) Screening 1992 Human Papillomavirus (HPV) Immunization (2 - 3-dose series) 09/01/2010 08/04/2010 Pap Smear 2013 Cervical Cancer Screening (CCS) 2022 HPV/Cotest 2022 SARS-COV-2 Immunization ( season) 2024 Influenza Immunization (Season Ended) 2025 Respiratory Syncytial Virus (RSV) Immunization (Adult) (1 - 1-dose 75+ series) 2067 Hepatitis B Immunization Completed 996, 03/01/1993, 1992 DTaP/Tdap/Td Immunization Discontinued 2016, 08/04/2010, 08/10/2004, Additional history exists TdaP Immunization Completed 09/17/2017 Meningococcal Immunization (ACWY) Aged Out No longer eligible based on patient's age to complete this topic Pneumococcal Immunization Combined Aged Out No longer eligible based on patient's age to complete this topic Rotavirus Immunization Aged Out No lo nger eligible based on patient's age to complete this topic Insurance [place]ICAID [place] Care Teams Provider Relations Coordinator Relationship Specialty Start Date End Date Ila Bunch, DISPLAY DIRECTOR, PRODUCTION PATTERN MAKER [place] [address] PCP - General Family Medicine 09/21/23
--- OUTSIDE RECORDS SUMMARY | 2025-05-25 13:37 | XMS_ITS | Continuity of Care Document ---
Author Organization [facility] Address [address] [place] [address] Phone Care Team Providers Care Block Press Operator Name Role Phone Peg Acosta Unavailable Unavailable Advance Directives Directive Yes / No Effective Date File Name No Information Encounters Encounter Description Practice Location Reason(s) For Visit Diagnoses Date Provider Providers Copied on Encounter [facility], [address], [place], [place], [id number], [place] tel:[phone] [address] [facility] [place] No Information [phone] Karla Ruvalcaba. [address] , [address], [place], [address], [place]. tel:[phone] Family History Family Member Type Diagnosis Age At Onset No Information Payers Payer name Insurance type Covered green party ID Authoriza tion(s) No Information Social History Type Description Quantity Date Captured Comments Sex Female Smoking Status No Information Chief Complaint And Reason For Visit No Information Reason For Referral Reason For Referral No Information History Of Present Illness Encounter Date Complaint History Of Prese nt Illness No Information Functional Status Date Functional Assessmen t No Information Instructions Date Instruction Additional Infor mation No Information Assessments Type Assessment Date No Information Patient Care Teams Name Effective Dates (start - stop) Status Members No Information
--- NOTE | 2025-05-25 14:35 | ED_ITS ---
HPI - Fall General Chief Complaint: Fall Stated Complaint: right leg, wrist injury Time Seen by Provider: 05/25/25 14:35 Focused HPI: This is a 34 year old female that presents to the ER for fall today. Reports she stepped into a hole while mowing her grass. Reports right lower leg and right wrist pain. GENERAL: Well-appearing, well-nourished, and in no acute distress. HEAD: Normocephalic, atraumatic. CHEST: Clear to auscultation. ?No respiratory distress. HEART: Regular rate and rhythm.? NEURO: ?Alert and oriented x3. EXTREMITY: No obvious deformity Patient screened in triage and initial orders placed.? ?Additional care and disposition to be based upon?diagnostic testing and treatment. Related Data Home Medications ?Medication ?Instructions ?Recorded ?Confirmed ?Last Taken ?Type multivitamin 1 tablet PO DAILY 09/18/24 09/18/24 Unknown History omeprazole 40 mg capsule,delayed mg PO 09/18/24 09/18/24 Unknown History release Allergies Allergy/AdvReac Type Severity Reaction Status Date / Time NSAIDS (Non-Steroidal Allergy Other Verified 09/18/24 10:29 Anti-Inflamma Review of Systems Review of Systems: All systems reviewed & are unremarkable except as noted in HPI and below PMFSH Past Medical History Medical History Abdominal pain HSV-2 (herpes simplex virus 2) infection Obesity Surgical History Surgical History Delivery by section H/O gastric sleeve December 19, 2023 History of endometrial ablation History of tubal ligation Social History Social History Social History: Patient denies smoking, drinking or using drugs. Smoking status: Current every day smoker Tobacco type: e-cigarettes/vaping Second hand tobacco smoke exposure: No Alcohol intake: current Alcohol use details: occasionally Substance use: never Substance use type: does not use Do You Feel Safe in your Home?: Yes Lack of Transportation: No Lack of Food: Never True Current Housing: I Have Housing Concerned About Future Housing: No Difficulty Paying Gas/Electric Bills: No Difficulty Paying for Meds: No Currently Unemployed: No Education: High School Diploma/GED Difficulty w/ Childcare or Family Care: No Living arrangements: with family Occupation/Education: unemployed Gender identity (if verbalized by the patient): Female Sexual Orientation (if Verbalized by the Patient): Straight or Heterosexual Exam Narrative: GENERAL: Well-appearing, well-nourished, and in no acute distress. HEAD: Normocephalic, atraumatic. EYES: EOMI. CHEST: No respiratory distress HEART: Regular rate EXTREMITIES: Normal range of motion. No edema or obvious deformity. Normal radial and DP pulses SKIN: Warm, dry, no rash. NEURO: No focal deficits. Alert and oriented x3. PSYCH: Normal mood and affect Course Course Emergency Course: patient updated on her workup and agrees with plan of care Vital Signs Vital signs: Vital Signs Temperature 97.3 F L 05/25/25 13:36 Pulse Rate 97 05/25/25 13:36 Respiratory Rate 16 05/25/25 13:36 Blood Pressure 129/78 05/25/25 13:36 Pulse Oximetry 100 05/25/25 13:36 Oxygen Delivery Room Air 05/25/25 13:36 Temperature 98.2 F 05/25/25 15:49 Pulse Rate 73 05/25/25 15:49 Respiratory Rate 15 05/25/25 15:49 Blood Pressure 142/93 H 05/25/25 15:49 Pulse Oximetry 100 05/25/25 15:49 Oxygen Delivery Room Air 05/25/25 13:36 MDM - Fall MDM Narrative Medical decision making narrative: Patient presents the emergency department after a fall today with right lower leg and wrist pain. She is neurovascularly intact. Right tib-fib and wrist x- rays are without acute osseous abnormalities. Patient placed in Robbin wrap, instructed to rest, ice and take [id number] pain medication as needed. She is to follow up with primary provider. She was given warnings to return to the ER Differential Diagnosis Differential diagnosis: Likely other (wrist sprain, wrist fracture, contusion) Imaging Data Radiologist's impression: Right tib/fib: FINDINGS/ IMPRESSION: There are no fractures or dislocations.Joint spaces are within normal limits. Right wrist: FINDINGS/ IMPRESSION: There are no fractures or dislocations.Joint spaces are within normal limits. Critical Care Time Critical Care Time Critical Care Time: No Discharge Plan Discharge Clinical Impression: Right wrist sprain, Contusion of right calf Patient Disposition: Home Condition: Stable Instructions: Contusion in Adults (ED), Wrist Sprain (ED) Additional Instructions: Return to the ER if you experience fever, redness and swelling of your extremity, numbness or any other symptoms that are concerning to you Wear ROBBIN wrap. Ice and elevate extremity. Pain medication as needed and directed. Follow up with primary doctor for further care. Patient Language: Austrian Prescriptions: No Action multivitamin Tablet 1 tablet PO DAILY omeprazole 40 mg capsule,delayed release(DR/EC) PO Follow-up/Referrals: PHYSICIAN,GRAPHIC ART DESIGNER [Primary Care Provider] - Sahara Saldaña DO [Physician] -
--- OUTSIDE RECORDS SUMMARY | 2025-05-25 14:51 | XMS_ITS | Continuity of Care Document ---
Author Organization [facility] Address [address] [place] [address] Phone Care Team Providers Care Ceramics Artist Name Role Phone Peg Acosta Unavailable Unavailable Advance Directives Directive Yes / No Effective Date File Name No Information Encounters Encounter Description Practice Location Reason(s) For Visit Diagnoses Date Provider Providers Copied on Encounter [facility], [address], [place], [place], [id number], [place] tel:[phone] [address] [facility] [place] No Information [phone] Karla Ruvalcaba. [address] [place] , [address], [place], [address], [place]. tel:[phone] Family History Family Member Type Diagnosis Age At Onset No Information Payers Payer name Insurance type Covered libertarian ID Authoriza tion(s) No Information Social History [...]
--- OUTSIDE RECORDS SUMMARY | 2025-05-25 14:51 | XMS_ITS | Clinical Summary ---
Author Organization [facility] Address [address], [facility] [address] [place] [address] Phone Care Team Providers Care Weaver Needle Loom Name Role Phone Ila Bunch APRN, CNP Primary Care Prov ider Allergies No known active allergies Medications ergocalciferol (VITAMIN D) 90875 UNIT Capsule 3 Active iron polysaccharides (NIFEREX) [...] Comments Blood Pressure 126/90 10/19/2023 12:55 PM VICE PRESIDENT FIXED INCOME Pulse 102 10/19/2023 12:55 PM VICE PRESIDENT FIXED INCOME Temperature 36.8 C (98.2 F) 10/19/2023 12:55 PM VICE PRESIDENT FIXED INCOME Respiratory Rate 18 10/19/2023 12:5 5 PM VICE PRESIDENT FIXED INCOME Oxygen Saturation 97% 10/19/2023 12: 55 PM VICE PRESIDENT FIXED INCOME Inhaled Oxygen Concentration - - Weight 108.6 kg (239 lb 6.4 oz) 023 12:55 PM VICE PRESIDENT FIXED INCOME Height 154.9 cm (5' 1) 10/19/2023 12:5 5 PM VICE PRESIDENT FIXED INCOME Body Mass Index 45.23 10/19/2023 12:55 PM VICE PRESIDENT FIXED INCOME Plan of Treatment Health Maintenance Due Date [...] age to complete this topic Insurance MEDICAID [place] Care Teams Weaver Needle Loom Relationship Specialty Start Date End Date Ila Bunch, COMPENSATION ANALYST, [place] [address] PCP - General Family Medicine 09/21/23
[2025-05-25 15:49] VITALS: BP 142/93; PULSE 73; RESP 15; TEMP 36.8; O2SAT 100
== END 2025-05-25 16:38 | disposition home or self-care (01) ==
PROVIDERS: Emergency Provider Physician Assistant
DX: S63.501A Unspecified sprain of right wrist, initial encounter (principal); S80.11XA Contusion of right lower leg, initial encounter; W18.42XA Slipping, tripping and stumbling without falling due to stepping into hole or opening, initial encounter; F17.290 Nicotine dependence, other tobacco product, uncomplicated
CPT/HCPCS: 73110; 73590; 99284

== ENCOUNTER 2025-10-09 13:09 | Outpatient (CLI) | payer OTHER, SELFPAY ==
--- OUTSIDE RECORDS SUMMARY | 2025-10-09 13:11 | XMS_ITS | Clinical Summary ---
Author Organization [facility] Address [address], [facility] [address] [place] [address] Phone Care Team Providers Care Risk Reduction Counselor Name Role Phone Ila Bunch APRN, CNP Primary Care Prov ider Allergies No known active allergies Medications ergocalciferol (VITAMIN D) 26800 UNIT Capsule 3 Active iron polysaccharides (NIFEREX) [...] Comments Blood Pressure 126/90 10/19/2023 12:55 PM LUMBER CHECKER Pulse 102 10/19/2023 12:55 PM LUMBER CHECKER Temperature 36.8 C (98.2 F) 10/19/2023 12:55 PM LUMBER CHECKER Respiratory Rate 18 10/19/2023 12:5 5 PM LUMBER CHECKER Oxygen Saturation 97% 10/19/2023 12: 55 PM LUMBER CHECKER Inhaled Oxygen Concentration - - Weight 108.6 kg (239 lb 6.4 oz) 023 12:55 PM LUMBER CHECKER Height 154.9 cm (5' 1) 10/19/2023 12:5 5 PM LUMBER CHECKER Body Mass Index 45.23 10/19/2023 12:55 PM LUMBER CHECKER Plan of Treatment Health Maintenance Due Date Last Done Comments Hepatitis C Virus (HCV) Screening 1992 Varicella Immunization (1 of 2 - 13+ 2-dose series) 2005 Human Papillomavirus (HPV) Immunization (2 - 3-dose series) 09/01/2010 08/04/2010 Pap Smear 2013 Cervical Cancer Screening (CCS) 2022 HPV/Cotest 2022 Influenza Immunization (#1) 2025 SARS-COV-2 Immunization ( - season) 2025 Respiratory Syncytial Virus (RSV) Immunization (Adult) [...] age to complete this topic Insurance MEDICAID [place] Care Teams Risk Reduction Counselor Relationship Specialty Start Date End Date Ila Bunch, CANDY MAKER HELPER, BEAD CUTTER [facility] [place] [address] PCP - General Family Medicine 09/21/23
== END 2025-10-09 13:10 | disposition home or self-care (01) ==
LOC: ANHLAB 13:10
PROVIDERS: Visit Provider Student in an Organized Health Care Education/Training Program
DX: N39.0 Urinary tract infection, site not specified (principal)
CPT/HCPCS: 87086; 87186